=== PATIENT | male | born 1990 | race African-American/Black ===

== ENCOUNTER 2023-03-27 18:49 | Emergency (ER) | payer OTHER ==
[2023-03-27 18:56] VITALS: BP 140/87; PULSE 78; RESP 18; TEMP 98.3; BMI 54.1
[2023-03-27] MEDS ORDERED: IBUPROFEN 600 MG TABLET (FP) PO ONE ×2 (19:46→19:59)
== END 2023-03-27 21:07 | disposition home or self-care (01) ==
LOC: JERFT 18:49 → JER 18:49 → JERFT 21:07
DX: R03.0 Elevated blood-pressure reading, without diagnosis of hypertension (principal); R00.2 Palpitations; R51.9 Headache, unspecified; M54.2 Cervicalgia; H92.09 Otalgia, unspecified ear; G47.30 Sleep apnea, unspecified
CPT/HCPCS: 70450-TC; 99284-25